=== PATIENT | female | born 1965 | race Caucasian/White ===

== ENCOUNTER 2017-12-09 08:17 | Inpatient (IN) ==
--- NOTE | 2017-12-08 21:04 | Discharge Summary ---
<Lesia Lara E - Last Filed: 12/08/17 21:02> Date of Encounter: 12/08/17 - Discharge Diagnosis (1) Status post total replacement of left shoulder Priority: Primary Status: Acute (2) Arthritis of left shoulder region Priority: Primary Status: Chronic (3) Obesity Priority: Secondary Status: Chronic Qualifiers: Obesity type: unspecified obesity type Obesity classification: unspecified obesity classification Serious obesity comorbidity presence: unspecified whether serious comorbidity present Qualified Code(s): E66.9 - Obesity, unspecified (4) History of bariatric surgery Priority: Secondary Status: Chronic - Hospital Course Hospital course: Ms. Barron is a 52 year old female - Time Spent with Patient Total time spent providing and/or coordinating discharge services: - Discharge Medications Home Medications: OxyCODONE Immed Rel [Roxicodone 5 MG] 5 mg PO Q6HR PRN 7 Days #28 tablet [Rx] Acetaminophen [Tylenol 8 Hour] 650 mg PO Q8H PRN 12/09/17 [History] Calcium Carbonate [Calcium] 500 mg PO DAILY 12/09/17 [History] Cholecalciferol (D-3) [Vitamin D] 1,000 unit PO DAILY 12/09/17 [History] Cyanocobalamin/Folic Acid [B-12 1,000 Mcg Sub Tablet] 1 tab SL DAILY 12/09/17 [ History] Cyclosporine [Restasis] 1 drop BOTH EYES DAILY 12/09/17 [History] Meloxicam 15 mg PO DAILY 12/09/17 [History] Multivitamin [One Daily Essential] 1 tab PO DAILY 12/09/17 [History] Allergies/Adverse Reactions: 3 Allergy/AdvReac Type Severity Reaction Status Date / Time No Known Allergies Allergy Verified 12/09/17 09:27 Primary care physician: PCP NONE - Patient Status Disposition: Home, Self-Care Condition: Good - Discharge Instructions Follow Up With: Lilibeth Emery PAC [Physician Tectonophysicist] - 12/19/17 1:30 pm NONE,PCP [Primary Care Provider] - Additional Instructions: Discharge Instructions: Total Shoulder Please call [facility] ([phone]), your Primary Care Physician, or report to the Emergency Room if you have any of the following symptoms: Nausea, vomiting, fever greater that 101.5, swelling, chest pain, shortness of breath, increased pain/redness/drainage/odor for your incision site, numbness/ tingling, or any other concerning symptoms. ACTIVITY: Always keep your arm in the sling. Do not raise your arm away from your body. Do not use your arm to help with getting in or out of bed. No weight bearing permitted. Only perform those exercises given to you by your therapist. MEDICATIONS: Upon discharge resume your home medications. Take all the medications as prescribed. Take a stool softener if taking narcotic pain medications. Stool softeners are only effective if you drink enough fluids. Drink 6-8 glass of water or fluids a day, unless this is not allowed for another health problem. Despite using stool softeners, if you haven't had a bowel movement in 3 days, please switch to a gentle laxative. Gentle laxatives are sold over the counter. You should have a bowel movement within 24 hours, if not call the office. You will be discharged from the hospital with a prescription for pain medication. You are encouraged to decrease the use of narcotic pain medication as tolerated. Should you require a refill, please call the office. [facility] prescribes narcotic pain medication for only 4-6 weeks after surgery. If you require pain medication beyond this time period, you may be referred to your Primary Care Physician or to the Pain Clinic for further evaluation. Plan ahead for refills on pain medication as many narcotics either need to be picked up at the office or mailed. It is best to call 48-72 hours in advance of needing a prescription refill so you don't run out of medication. To help control the post-operative pain, you may take NSAIDs (Aleve,Advil, Motrin, Ibuprofen, Naprosyn) or Tylenol as prescribed on the bottle in addition to the pain medication. WOUND CARE: Leave the dressing on for 7-10 days. You may change the dressing if it becomes saturated greater than 50%. Do not get the dressing wet at anytime. Wash your hands with antibacterial soap, rinse and dry prior to any wound care. If you have osmar the visiting nurse or rehab facility can remove the stapes 10-14 days after surgery and place steri-strips across the wound. Leave the steri-strips in place until they fall off on their own. You may let water from the shower run on top of the steri-strips. If you do not have a visiting nurse or rehab facility, you will need to return to the office at 10-14 days for the osmar to be removed. If you have itching or redness around the dressing call the office. FOLLOW-UP: Please follow up with your surgeon in the orthopedic clinic, as scheduled <Gio Chou - Last Filed: 12/13/17 07:56> Orders not resulted at time of discharge: Pending orders 12/09/17 00:00 XR shoulder complete LT [XR] Routine 12/09/17 01:00 Hemoglobin and Hematocrit [HEME] Routine Date of Encounter: 12/13/17 Time of Encounter: 07:55 - Discharge Diagnosis (1) Morbid obesity with BMI of 45.0-49.9, adult Priority: Secondary Status: Chronic (2) Arthritis of left shoulder region Priority: Primary Status: Chronic (3) History of bariatric surgery Priority: Secondary Status: Chronic (4) Status post total replacement of left shoulder Priority: Primary Status: Acute - Hospital Course Hospital course: Ms. Barron is a 52 year old female Status post total shoulder replacement discharged home same day Time spent discussing smoking cessation with patient: more than 10 minutes - Time Spent with Patient Total time spent providing and/or coordinating discharge services: Primary care physician: PCP NONE - Patient Status Functional capacity at discharge: independent ambulation Overall status at discharge: patient is progressing back to baseline
[2017-12-09] MEDS ORDERED: Ringers Solution, Lactated 1,000 ML IVC SCH ×2 (09:15→13:48)
[2017-12-09] MEDS ORDERED: CeFAZolin Syr 3,000MG/30 ML 3,000 MG/30 ML SYRINGE IVPB ONE (09:15)
[2017-12-09] MEDS ORDERED: Lidocaine -MPF 1% 2 ML VIAL ID ONE (09:15)
[2017-12-09] MEDS ORDERED: *HR* FentaNYL (PF) 100 MCG/2 ML VIAL ONE (09:41)
[2017-12-09] MEDS ORDERED: *HR* Propofol 200 MG/20 ML VIAL IVP ONE ×2 (09:41→10:05)
[2017-12-09] MEDS ORDERED: *HR* Midazolam HCl 2 MG/2 ML VIAL ONE (09:41)
[2017-12-09] MEDS ORDERED: Dexamethasone 4 MG/ML VIAL ONE (09:41)
[2017-12-09] MEDS ORDERED: Lidocaine -MPF 2% 2 ML VIAL ONE (09:41)
[2017-12-09] MEDS ORDERED: Ketorolac 30 MG/ML VIAL ONE (09:41)
[2017-12-09] MEDS ORDERED: Ondansetron 4 MG/2 ML VIAL ONE (09:41)
[2017-12-09] MEDS ORDERED: *HR* Succinylcholine 200 MG/10 ML VIAL IVP ONE (09:41)
[2017-12-09] MEDS ORDERED: Lidocaine -MPF 4% 5 ML AMPUL ONE (09:44)
--- NOTE | 2017-12-09 10:08 | History & Physical Report ---
Date of Encounter: 12/09/17 Time of Encounter: 10:08 24 Hour HP Update - Instructions Instructions: If the History and Physical is less than 30 days old and was completed prior to A.M. admission and or procedure and has NOT been updated on calendar day of procedure please complete this update prior to performing procedure. - Update Patient reports changes in Medical Condition: No Changes in examination, assessment, or condition: No Changes in Medication: No Preop tests/diagnostics Reviewed: Yes Surgery Remains Indicated: Yes Consent for Planned Operative Procedure(s) Verified: Yes - Pre-Operative Checklist Preoperative Checklist Indicated: No Prophylactic Antibiotic Ordered: Yes Is VTE Prophylaxis Indicated?: Yes
--- NOTE | 2017-12-09 10:14 | Anesthesia Evaluation PreOp ---
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 Any Significant HX Other Medical History: Other (OBESITY, ARTHRITIS) Anesthesia History: No Prior Anesthetic Complications, Past Anesthesia Alcohol Use: none Drug use: none Medications and Allergies OxyCODONE Immed Rel [Roxicodone 5 MG] 5 mg PO Q6HR PRN 7 Days #28 tablet [Rx] Acetaminophen [Tylenol 8 Hour] 650 mg PO Q8H PRN 12/09/17 [History] Calcium Carbonate [Calcium] 500 mg PO DAILY 12/09/17 [History] Cholecalciferol (D-3) [Vitamin D] 1,000 unit PO DAILY 12/09/17 [History] Cyanocobalamin/Folic Acid [B-12 1,000 Mcg Sub Tablet] 1 tab SL DAILY 12/09/17 [ History] Cyclosporine [Restasis] 1 drop BOTH EYES DAILY 12/09/17 [History] Meloxicam 15 mg PO DAILY 12/09/17 [History] Multivitamin [One Daily Essential] 1 tab PO DAILY 12/09/17 [History] 3 Allergy/AdvReac Type Severity Reaction Status Date / Time No Known Allergies Allergy Verified 12/09/17 09:27 - Meds/Allergy Pre-op Review Medications Reviewed: Yes Allergies Reviewed: Yes Beta Blockers on Current Med List: No Anesthesia Exam O2 Sat Height 1.65 m Weight 129.727 kg BMI 48 Vital Signs Temp Pulse Resp BP Pulse Ox 98.0 F 78 18 130/84 97 12/09/17 08:53 12/09/17 08:53 12/09/17 08:53 12/09/17 08:53 12/09/17 08:53 NPO (# of Hours): 8 - HEENT Pupil (Motor): Pupils equal Mallampati: III Teeth: Normal - Cardiac Rhythm: Regular - Pulmonary Breath Sounds: bilateral Clear Anesthesia Assess/Plan ASA Score: 3 Modified Bynum Scale for Level of Consciousness: Cooperative, oriented, and tranquil Anesthetic Plan: General, Regional Monitoring Plan: Standard Monitors Recovery Plan: PACU Anes Supervising Prov Stmt: Patient informed and consented. Risks, benefits, and alternatives discussed. Patient wishes to proceed.
[2017-12-09] MEDS ORDERED: ROPIVACAINE HCL/PF 0.5% 30 ML VIAL ONE (10:21)
[2017-12-09] MEDS ORDERED: Bupivacaine/Clonidine Syringe 1 EACH SYRINGE ONE (10:22)
[2017-12-09] MEDS ORDERED: *HR* OxyCODONE Immed Rel 5 MG TABLET PO PRN ×2 (10:35→13:48)
[2017-12-09] MEDS ORDERED: *HR* Promethazine 25 MG/ML VIAL IVP PRN (10:35)
--- NOTE | 2017-12-09 10:41 | Anesthesia Procedures ---
Date of Encounter: 12/09/17 Time of Encounter: 10:39 Procedures: Anesthesia - Nerve Block Procedure Date: 12/09/17 Time: 10:39 Allergies/Adv Reactions: NKDA Pre-op Diagnosis: L shoulder arthritis Surgical Procedure: L TSR Checklist: Correct Patient Identifier, Correct procedure, History checked Correct side: Left Blood Thinner: No Monitor Applied: EKG, BP, Pulse Oximetry Supplemental Oxygen via Nasal Cannula (L/min): 3 Sedation: Versed (mg): 2 Sedation: Fentanyl (mcg): 100 Indication: Post Op Analgesia (requested by Dr. Chou) Pre-op Neuro Deficits: No Block Type: Supraclavicular, Other (SCP) Catheter placed: No Sterile Technique: Yes Ultrasound used: Yes Anatomy identified: Yes Visual spread of Local: Yes Neuro Stimulation: No Blood on Needle Aspiration: No Smooth Injection of Local: Yes Pain with Injection of Local: No Prep: Chlorhexadine Needle: 22 x 50 mm Stimuplex Local: 0.25% Bupivicaine w/Clonidine 20 mcg/cc (10mL for SCP), Ropivacaine (0.5% , 30mL for supraclavicular n. block) Number of Attempts: 1 Complications: None/effective block Vitals: please see Viji RN's "holding vital signs" note
[2017-12-09] MEDS ORDERED: *HR* PHENYLEPHRINE 1,000 MCG/10 ML SYRINGE IVP ONE (12:16)
[2017-12-09] MEDS ORDERED: EPHEDrine 50 MG/ML VIAL ONE (12:25)
--- NOTE | 2017-12-09 12:41 | Orthopedic Operative Note ---
Date of procedure: 12/09/17 Pre-op diagnosis: Left shoulder arthritis Post-op diagnosis: same Procedure: Procedure: Left Total Shoulder Replacement biceps tenodesis Estimated blood loss: 200 cc Hardware:Arthrex glenoid: Medium humeral stem:9 humeral head 48 x 18 Exam Under anesthesia:restricted Procedural Notes: Grade 4 arthritic changes humeral head glenoid socket Operative procedure: The patient was brought to the operating room and placed on the operating room table. After general anesthesia was administered the operative shoulder was examined. Findings were noted. The patient was placed in the modified beachchair position. All pressure points were padded appropriately. And the head was stabilized in the neutral position. The operative extremity was prepped and draped in the sterile surgical fashion. The patient received IV antibiotics prior to skin incision. A standard deltopectoral approach was made to the operative shoulder. Incision was made to the skin and subcutaneous tissue,hemo stasis was obtained with Bovie cautery. Using careful blunt dissection the cephalic vein was identified and mobilized medially. The deltopectoral interval was developed and the clavipectoral fascia was incised. The subscap was released off the lesser tuberosity and tagged with #2 FiberWire suture. The humerus was dislocated osteophytes were present were removed and the humeral cut was made along the anatomic neck. Patient noted to have grade 4 arthritic changes humeral head Anterior and posterior Bankart retractors were placed to expose the glenoid. Patient noted to have grade 4 arthritic changes glenoid socket. The glenoid guide was seated and the centering hole was made. It was reamed with the appropriate reamer. The finishing guide was seated superior and inferior drill holes were placed. Patient punch was seated trial was seated had good fit and fixation. The medium glenoid component was cemented in place held with digital pressure until cemented hardened. A good fit and fixation. The humerus was redislocated and prepared with the diaphyseal reamers, followed by a broaching process up to the appropriate size 9 in the patient's anatomic version. Trial components were removed and drill holes were placed in the bicipital groove x 2. The apex stem was filled with a #5 FiberWire suture through the holes in the stem the 2 lateral fin holes were passed through the drill holes in the lesser tuberosity and passed through the biceps tendon. The component was impacted in place the neck angle and version were locked in place with the inferior and superior screws the trial head 48 x 18 was seated and secured in the appropriate position shoulder had good motion and stability. Trial head was removed real head 48 x 18 was seated and secured subscap was repaired to the humerus as well as the humeral stem incorporating the biceps tendon for biceps tenodesis and a subscap repair. the PA close the shoulder. The deltopectoral interval was closed with a running #1 PDS suture, subcutaneous tissue was irrigated and closed with 0 PDS suture, the skin was closed with Dermabond. The patient was placed in a sterile dressing, abduction brace and extubated. The patient was then transferred to the recovery room in stable condition. Anesthesia: GETA Surgeon: Gio Chou Was there an assistant counsel present: No Estimated blood loss (cc): 200 Condition: stable Disposition: PACU
[2017-12-09 13:40] LABS: Hematocrit 38.7 % (35.3-44.9); Hemoglobin 13.9 g/dL (11.5-15.4)
[2017-12-09] MEDS ORDERED: *HR* OxyCODONE/APAP 5/325 TABLET PO PRN (13:48)
[2017-12-09] MEDS ORDERED: Ondansetron 4 MG/2 ML VIAL IVP PRN (13:48)
[2017-12-09] MEDS ORDERED: Sennosides 8.6 MG TABLET PO PRN (13:48)
[2017-12-09] MEDS ORDERED: Temazepam 15 MG CAPSULE PO PRN (13:48)
[2017-12-09] MEDS ORDERED: traMADol 50 MG TABLET PO PRN (13:48)
[2017-12-09] MEDS ORDERED: MOM Conc 10 ML UD.LIQ PO PRN (13:48)
[2017-12-09] MEDS ORDERED: Naloxone 0.4 MG/ML INJ IVP PRN (13:48)
[2017-12-09] MEDS ORDERED: CeFAZolin Syr 3,000MG/30 ML 3,000 MG/30 ML SYRINGE IVPB SCH (16:00)
[2017-12-09 16:25] VITALS: BP 123/78
--- NOTE | 2017-12-09 17:18 | Anesthesia Evaluation Post Op ---
Date of Encounter: 12/09/17 Time of Encounter: 13:27 Notes: Patient's vital signs have been reviewed. Patient is stable postoperatively and has adequately recovered from anesthesia. Patient is determined to have stable airway patency and respiratory function including respiratory rate and oxygen saturation. Patient has a stable heart rate, blood pressure and adequate hydration. Patients mental status is acceptable. Patients temperature is appropriate. Pain and nausea are adequately controlled. - Discharge PostOp Status: Transfer Patient to floor
[2017-12-09] MEDS ORDERED: *HR* Enoxaparin 30 MG/0.3 ML SYRINGE SQ SCH ×2 (18:00)
[2017-12-10] MEDS ORDERED: (Cyclosporine [Restasis] 1 DROP) OP SCH (09:00)
[2017-12-10] MEDS ORDERED: CYANOCOBALAMIN SL SCH (09:00)
[2017-12-10] MEDS ORDERED: FOLIC ACID SL SCH (09:00)
[2017-12-10] MEDS ORDERED: Multivit/Ca/Min/Fe/FA 1 TAB TABLET PO SCH (09:00)
[2017-12-10] MEDS ORDERED: Cholecalciferol (D-3) 1,000 UNIT TABLET PO SCH (09:00)
== END 2017-12-09 18:32 | disposition home or self-care (01) | DRG 483 ==
LOC: SAMDAY 08:17 → 3NENU 13:46
PROVIDERS: ADMIT Orthopaedic Surgery; ATTEND Orthopaedic Surgery